=== PATIENT | female | born 1965 | race Caucasian/White ===

== ENCOUNTER 2022-03-24 10:46 | Emergency (ER) | payer OTHER ==
[2022-03-24] MEDS ORDERED: Ketorolac 30 MG/ML SDV ONE (11:24)
[2022-03-24] MEDS ORDERED: HYDROmorphone 1 MG/ML Syringe ONE (11:24)
[2022-03-24] MEDS ORDERED: Ketorolac 30 MG/ML SDV IVPUSH ONE (11:24)
[2022-03-24] MEDS ORDERED: HYDROmorphone 1 MG/ML Syringe IVPUSH ONE ×2 (11:24→11:27)
[2022-03-24] MEDS ORDERED: Sodium Chloride 0.9% 1,000 ML IV ONE (11:24)
[2022-03-24 11:42] LABS: ANION GAP 15.8 mmol/L (5-15)
[2022-03-24] MEDS ORDERED: LORazepam 2 MG/ML SDV IVPUSH ONE (12:13)
[2022-03-24] MEDS ORDERED: hydrOXYzine HCl 50 MG/ML SDV IM ONE (13:40)
== END 2022-03-24 14:30 | disposition home or self-care (01) ==
LOC: KA.ED 10:46
DX: R10.9 Unspecified abdominal pain (principal); M62.830 Muscle spasm of back; Z88.6 Allergy status to analgesic agent; Z88.1 Allergy status to other antibiotic agents; Z91.041 Radiographic dye allergy status; Z91.048 Other nonmedicinal substance allergy status; Z79.899 Other long term (current) drug therapy
CPT/HCPCS: 74176; 80053; 81001; 83690; 85025; 86140; 96361; 96372; 96374; 96375; 99284; 99284-25; J1170; J1885; J2060; J3410; J7030